=== PATIENT | male | born 1960 | race African-American/Black ===

== ENCOUNTER 2016-12-06 09:35 | Inpatient (IN) | payer MEDICAID, OTHER ==
[~2016-12-06] VITALS: Ht 193 cm; Wt 70.8 kg
[~2016-12-06 09:35] MED LIST: ALBU18HF2 IH; AZIT250T6 PO; BECL8.7A6 INH; CLOT15CR2 TP; D-ME118S13 PO; GABA-531 PO; GEMF600T3 PO; GUAI1TBM14 PO; HYDR30CR80 RC; HYDROCORTISONE SUPP; IBUP-2030 PO; LOSA50TA20 PO; OMEG1CAP17 PO; OMEP20TA15 PO
[2016-12-06] MEDS ORDERED: ONDANSETRON HCL 4MG/2ML VIAL IV STA (10:19)
[2016-12-06] MEDS ORDERED: SODIUM CHLORIDE 0.9% 1,000 ML IV ONE (10:19)
[2016-12-06] MEDS ORDERED: MORPHINE SULFATE 4 MG/ML CPJ (NOT FOR IM USE) IV STA (10:19)
[2016-12-06 10:41] LABS: HEMATOCRIT. 23.7 % (42.0-52.0); HEMOGLOBIN. 7.7 g/dL (14.0-18.0); MEAN CORPUSCULAR HEMOGLOBIN 32.5 pg (28.0-32.0); MEAN CORPUSCULAR VOLUME 99.5 fL (80.0-94.0); MEAN PLATELET VOLUME 6.7 fl (7.4-10.4); PLATELET 205 x1000/uL (130-400); RED BLOOD CELL COUNT 2.38 mill/uL (4.7-6.1); RED CELL DISTRIBUTION WIDTH 18.6 % (11.6-14.6)
[2016-12-06 11:00] LABS: CARBON DIOXIDE 16 mEq/L (21-32); CHLORIDE 99 mEq/L (98-107); CREATINE KINASE 113 IU/L (39-308); ETHANOL BLOOD < 10 mg/dL; INR 1.2; PARTIAL THROMBOPLASTIN TIME 24.6 sec (23.4-31.0); PROTHROMBIN TIME 12.9 sec (9.4-11.6); TROPONIN I < 0.02 ng/mL (0.00-0.04)
[2016-12-06] MEDS ORDERED: POTASSIUM CHLORIDE 20MEQ TABLET SR PO ONE (11:15)
[2016-12-06 11:17] LABS: D-DIMER > 35.20 mg/L FEU (<0.50)
[2016-12-06 11:46] LABS: PLATELET ESTIMATE NORMAL
[2016-12-06] MEDS ORDERED: MAGNESIUM 2 G PREMIX 50 ML IV ONE (14:30)
[2016-12-06] MEDS ORDERED: LIDOCAINE HCL 1% 20ML VIAL (Pyxis) INJ ONE (14:46)
[2016-12-06] MEDS ORDERED: SODIUM BICARBONATE 4% (2.4MEQ) 5ML VIAL IV ONE (14:47)
[2016-12-06] MEDS ORDERED: ALBUMIN HUMAN 25GM/500ML (5%) IV PRN (16:00)
[2016-12-06] MEDS ORDERED: ALBUTEROL (0.083%) 2.5MG/3ML NEB ONE (17:10)
[2016-12-06 17:31] VITALS: BP 124/81
[2016-12-06 17:33] VITALS: BP 124/81
[2016-12-06] MEDS ORDERED: ACETAMINOPHEN 325MG TABLET PO PRN (19:30)
[2016-12-06] MEDS ORDERED: ONDANSETRON HCL 4MG/2ML VIAL IV PRN (19:30)
[2016-12-06] MEDS ORDERED: IPRATROPIUM/ALBUTEROL 0.5-3(2.5)MG/3ML NEB INH PRN (19:30)
[2016-12-06 20:00] VITALS: BP 108/63
[2016-12-06 20:23] LABS: TOTAL IRON BINDING CAPACITY 294 ug/dL (250-450)
[2016-12-06] MEDS: SODIUM CHLORIDE 0.9% 1,000 ML IV SCH (20:29)
[2016-12-06 22:00] VITALS: BP 120/69
[2016-12-07] VITALS (16 sets, daily range): BP systolic 89–132; BP diastolic 59–94
[2016-12-07] MEDS: SODIUM CHLORIDE 0.9% 1,000 ML IV SCH ×3 (03:58→20:20)
[2016-12-07 04:19] LABS: CLARITY URINE CLEAR (CLEAR); COLOR URINE YELLOW (YELLOW); GLUCOSE URINE NEGATIVE (NEGATIVE); KETONES URINE NEGATIVE (NEGATIVE); LEUKOCYTE ESTERASE URINE NEGATIVE (NEGATIVE); NITRITE URINE NEGATIVE (NEGATIVE); OCCULT BLOOD URINE NEGATIVE (NEGATIVE); PH URINE 5.5 (4.5-8.0); PROTEIN URINE 1+ (NEGATIVE); SPECIFIC GRAVITY URINE 1.015 (1.005-1.030); UROBILINOGEN URINE 0.2 E.U./dL (0.2-1.0)
[2016-12-07 04:33] LABS: *AMPHETAMINES SCREEN URINE NEGATIVE (NEGATIVE); *BARBITURATES SCREEN URINE NEGATIVE (NEGATIVE); *BENZODIAZEPINES SCREEN URINE NEGATIVE (NEGATIVE); *COCAINE SCREEN URINE NEGATIVE (NEGATIVE); CANNABINOID URINE SCREEN NEGATIVE (NEGATIVE); METHADONE URINE SCREEN NEGATIVE (NEGATIVE); OPIATES URINE SCREEN NEGATIVE (NEGATIVE); PHENCYCLIDINE URINE SCREEN NEGATIVE (NEGATIVE)
[2016-12-07] MEDS: OMEPRAZOLE 20MG CAPSULE EXTENDED RELEASE PO SCH (06:05)
[2016-12-07 06:30] LABS: MEAN CORPUSCULAR VOLUME 99.3 fL (80.0-94.0); MEAN PLATELET VOLUME 7.4 fl (7.4-10.4); PLATELET 174 x1000/uL (130-400); RED BLOOD CELL COUNT 1.88 mill/uL (4.7-6.1); RED CELL DISTRIBUTION WIDTH 17.9 % (11.6-14.6)
[2016-12-07 06:39] LABS: HEMATOCRIT. 18.6 % (42.0-52.0); HEMOGLOBIN. 6.2 g/dL (14.0-18.0)
[2016-12-07 07:08] LABS: PHOSPHORUS 2.1 mg/dL (2.5-4.9)
[2016-12-07 07:18] LABS: TROPONIN I 0.04 ng/mL (0.00-0.04)
[2016-12-07] MEDS: MULTIVITAMINS,THER W-MINERALS TABLET PO SCH (08:29)
[2016-12-07] MEDS: FOLIC ACID 1MG TABLET PO SCH (08:29)
[2016-12-07] MEDS: THIAMINE HCL 100MG TABLET PO SCH (08:29)
[2016-12-07] MEDS ORDERED: MAGNESIUM 4 G PREMIX 100 ML IV NR (09:00)
[2016-12-07] MEDS ORDERED: POTASSIUM PHOS,M-BASIC-D-BASIC 20 MMOL in DEXT 5% WATER 243.3333 ML IV NR (09:30)
[2016-12-07 13:38] LABS: PLATELET ESTIMATE NORMAL
[2016-12-07] MEDS ORDERED: HYDROCODONE/ACETAMINOPHEN 5/325MG TABLET PO NR (15:15)
[2016-12-07] MEDS ORDERED: HYDROCODONE/ACETAMINOPHEN 5/325MG TABLET PO PRN (19:00)
[2016-12-07] MEDS: NEOMY SULF/BACITRAC ZN/POLY OINT 28GM TOP SCH (22:16)
[2016-12-07] MEDS: METRONIDAZOLE 500 MG PREMIX 100 ML IV SCH (22:16)
[2016-12-07 22:49] LABS: HEMATOCRIT 22.7 % (42.0-52.0); HEMOGLOBIN 7.6 g/dL (14.0-18.0); MEAN CORPUSCULAR HEMOGLOBIN 31.8 pg (28.0-32.0); MEAN CORPUSCULAR VOLUME 95.1 fL (80.0-94.0); PLATELET 168 x1000/uL (130-400); RED BLOOD CELL COUNT 2.39 mill/uL (4.7-6.1)
[2016-12-08] VITALS (19 sets, daily range): BP systolic 107–156; BP diastolic 46–87
[2016-12-08] MEDS: SODIUM CHLORIDE 0.9% 1,000 ML IV SCH ×3 (03:43→19:45)
[2016-12-08] MEDS: OMEPRAZOLE 20MG CAPSULE EXTENDED RELEASE PO SCH (05:57)
[2016-12-08] MEDS: METRONIDAZOLE 500 MG PREMIX 100 ML IV SCH ×3 (05:57→22:14)
[2016-12-08 06:11] LABS: HEMATOCRIT. 22.1 % (42.0-52.0); HEMOGLOBIN. 7.3 g/dL (14.0-18.0); MEAN CORPUSCULAR HEMOGLOBIN 31.5 pg (28.0-32.0); MEAN CORPUSCULAR VOLUME 95.4 fL (80.0-94.0); MEAN PLATELET VOLUME 7.6 fl (7.4-10.4); PLATELET 164 x1000/uL (130-400); RED BLOOD CELL COUNT 2.31 mill/uL (4.7-6.1); RED CELL DISTRIBUTION WIDTH 20.3 % (11.6-14.6)
[2016-12-08 07:50] LABS: CARBON DIOXIDE 14 mEq/L (21-32); CHLORIDE 108 mEq/L (98-107); PHOSPHORUS 1.8 mg/dL (2.5-4.9)
[2016-12-08] MEDS: NEOMY SULF/BACITRAC ZN/POLY OINT 28GM TOP SCH ×2 (09:38→20:25)
[2016-12-08] MEDS: FOLIC ACID 1MG TABLET PO SCH (09:38)
[2016-12-08] MEDS: THIAMINE HCL 100MG TABLET PO SCH (09:38)
[2016-12-08] MEDS: MULTIVITAMINS,THER W-MINERALS TABLET PO SCH (09:38)
[2016-12-08] MEDS ORDERED: KCL 20MEQ/100ML PREMIX 100 ML IV SCH (13:00)
[2016-12-08 13:43] LABS: PLATELET ESTIMATE NORMAL
[2016-12-08 13:59] LABS: FOLIC ACID (FOLATE) SERUM 10.7 ng/mL (>5.38)
[2016-12-08] MEDS ORDERED: BISACODYL 5MG TABLET PO NR ×2 (16:00→20:00)
[2016-12-08] MEDS ORDERED: SORBITOL 70% SOLN 30ML PO NR ×2 (16:00→20:00)
[2016-12-08 17:12] LABS: HEMATOCRIT 25.4 % (42.0-52.0); HEMOGLOBIN 8.6 g/dL (14.0-18.0)
[2016-12-08 19:12] LABS: ANTI-NUCLEAR ANTIBODIES DIRECT Negative (Negative)
[2016-12-09] VITALS (12 sets, daily range): BP systolic 142–162; BP diastolic 88–101
[2016-12-09] MEDS: SODIUM CHLORIDE 0.9% 1,000 ML IV SCH ×2 (04:42→11:51)
[2016-12-09] MEDS: METRONIDAZOLE 500 MG PREMIX 100 ML IV SCH ×3 (05:52→21:03)
[2016-12-09] MEDS: OMEPRAZOLE 20MG CAPSULE EXTENDED RELEASE PO SCH (05:55)
[2016-12-09] MEDS ORDERED: SORBITOL 70% SOLN 30ML PO NR (06:00)
[2016-12-09 06:20] LABS: COMPLEMENT C3 47 mg/dL (82-167)
[2016-12-09 06:55] LABS: HEMATOCRIT. 24.7 % (42.0-52.0); HEMOGLOBIN. 8.3 g/dL (14.0-18.0); INR 1.2; MEAN CORPUSCULAR HEMOGLOBIN 31.4 pg (28.0-32.0); MEAN PLATELET VOLUME 7.5 fl (7.4-10.4); PARTIAL THROMBOPLASTIN TIME 27.3 sec (23.4-31.0); PLATELET 191 x1000/uL (130-400); PROTHROMBIN TIME 12.3 sec (9.4-11.6); RED BLOOD CELL COUNT 2.66 mill/uL (4.7-6.1); RED CELL DISTRIBUTION WIDTH 20.6 % (11.6-14.6)
[2016-12-09 07:24] LABS: CARBON DIOXIDE 18 mEq/L (21-32); CHLORIDE 114 mEq/L (98-107); PHOSPHORUS 1.1 mg/dL (2.5-4.9)
[2016-12-09] MEDS: MULTIVITAMINS,THER W-MINERALS TABLET PO SCH (08:38)
[2016-12-09] MEDS: THIAMINE HCL 100MG TABLET PO SCH (08:38)
[2016-12-09] MEDS: FOLIC ACID 1MG TABLET PO SCH (08:38)
[2016-12-09] MEDS: NEOMY SULF/BACITRAC ZN/POLY OINT 28GM TOP SCH ×2 (10:44→21:02)
[2016-12-09] MEDS ORDERED: MAGNESIUM 2 G PREMIX 50 ML IV NR (11:30)
[2016-12-09 12:37] LABS: PLATELET ESTIMATE NORMAL
[2016-12-09] MEDS ORDERED: SIMETHICONE 40 MG/0.6 ML 30ML ONE (13:59)
[2016-12-09] MEDS ORDERED: SODIUM CHLORIDE 0.9% 10ML VIAL ONE (13:59)
[2016-12-09] MEDS ORDERED: POTASSIUM PHOS,M-BASIC-D-BASIC 15 MMOL in DEXT 5% WATER 245 ML IV NR (14:00)
[2016-12-09] MEDS ORDERED: MIDAZOLAM HCL 5 MG/5 ML VIAL ONE (15:00)
[2016-12-09] MEDS ORDERED: FENTANYL CITRATE/PF 50MCG/ML 2ML VIAL ONE (15:00)
[2016-12-10] VITALS: BP 145/92
[2016-12-10 02:00] VITALS: BP 156/93
[2016-12-10 04:00] VITALS: BP 166/100
== END 2016-12-10 05:53 | disposition left against medical advice (07) | DRG 469 ==
LOC: ER 09:58 → CVICU 11:48 → EDBEDREQSVC 11:51 → EDBEDREQ 11:51 → ENRESERV 13:43 → 3WST 17:12
PROVIDERS: ADMIT Internal Medicine; ATTEND Internal Medicine
PROC: 0DB68ZX Excision of Stomach, Via Natural or Artificial Opening Endoscopic, Diagnostic (ICD-10-PCS; principal; 2016-12-06)
PROC: 0DJD8ZZ Inspection of Lower Intestinal Tract, Via Natural or Artificial Opening Endoscopic (ICD-10-PCS; 2016-12-06)
PROC: 02HV33Z Insertion of Infusion Device into Superior Vena Cava, Percutaneous Approach (ICD-10-PCS; 2016-12-06)
PROC: B5181ZA Fluoroscopy of Superior Vena Cava using Low Osmolar Contrast, Guidance (ICD-10-PCS; 2016-12-06)
PROC: B548ZZA Ultrasonography of Superior Vena Cava, Guidance (ICD-10-PCS; 2016-12-06)
DX: N17.0 Acute kidney failure with tubular necrosis (principal); J96.00 Acute respiratory failure, unspecified whether with hypoxia or hypercapnia; E43 Unspecified severe protein-calorie malnutrition; R64 Cachexia; I95.9 Hypotension, unspecified; E11.21 Type 2 diabetes mellitus with diabetic nephropathy; E11.22 Type 2 diabetes mellitus with diabetic chronic kidney disease; E87.1 Hypo-osmolality and hyponatremia; E86.0 Dehydration; R06.89 Other abnormalities of breathing; D72.819 Decreased white blood cell count, unspecified; E87.6 Hypokalemia; E83.51 Hypocalcemia; E83.42 Hypomagnesemia; E78.1 Pure hyperglyceridemia; I82.501 Chronic embolism and thrombosis of unspecified deep veins of right lower extremity; Z79.01 Long term (current) use of anticoagulants; R55 Syncope and collapse; D64.9 Anemia, unspecified; Z86.718 Personal history of other venous thrombosis and embolism; R26.9 Unspecified abnormalities of gait and mobility
CPT/HCPCS: 36415; 36569; 70551; 71010; 76770; 76937; 77001; 78582; 80048; 80053; 80076; 80305; 81001; 82270; 82533; 82550; 82607; 82728; 82746; 83540; 83550; 83605; 83690; 83735; 83880; 84100; 84134; 84443; 84484; 85014; 85018; 85025; 85027; 85379; 85610; 85730; 86038; 86160; 86677; 86850; 86900; 86920; 87040; 88305; 88312; 88313; 93005; 93306; 93880; 93970; 96361; 96365; 97116; 97162; 97166; 99152; 99291; A4216; A9558; C1725; G0482; J2250; J3010; J3475; J3480; J3490; J7030; J7040; J7050; J7060; J7611; P9016